=== PATIENT | female | born 1965 | race African-American/Black ===

== ENCOUNTER 2016-09-05 23:21 | Emergency (ER) | payer MEDICARE, MEDICAID ==
[~2016-09-05] VITALS: Ht 157.5 cm; Wt 70.3 kg
[~2016-09-05 23:21] MED LIST: AZITHROMYCIN250 MG ORAL; IBUPROFEN600 MG ORAL; LEVAQUIN500 MG ORAL; PROMETHAZINE-C118 M1 ORAL
[2016-09-05] MEDS ORDERED: BENZTROPINE ME0.5 MG PO (23:31)
[2016-09-05] MEDS ORDERED: QUETIAPINE FUMA25 MG ORAL (23:31)
[2016-09-06] MEDS ORDERED: IBUPROFEN600 MG ORAL (00:14)
--- NOTE | 2016-09-06 00:15 | Emergency Room Report ---
History of Present Illness General Chief Complaint: Pain Source: Patient Present Illness HPI This is a 50-year-old female with no past medical history. She presents with chief complaint of body pain. Onset for last few days. No trauma. No fever or chills. Has not take anything for this. No cough congestion. No fever or chills. No other complaint. Allergies: Coded Allergies: PENICILLINS (Verified Allergy, Unknown, 09/05/16) Patient History Past Medical History: see triage record, old chart reviewed Past Surgical History: other Pertinent Family History: none Social History: Denies: smoking Now: No Immunizations: other Reviewed Nursing Documentation: PMH: Agreed, PSxH: Agreed Nursing Documentation-PMH Past Medical History: No History, Except For Hx Diabetes: Yes Review of Systems Eye: Denies: blurred vision, eye pain ENT: Denies: ear pain, nose congestion, throat swelling Respiratory: Denies: cough, shortness of breath Cardiovascular: Denies: chest pain, palpitations Gastrointestinal: Denies: abdominal pain, diarrhea, nausea, vomiting Musculoskeletal: Denies: back pain, joint pain Skin: Denies: rash Neurological: Denies: headache, numbness Endocrine: Denies: increased thirst, increased urine Hematologic/Lymphatic: Denies: easy bruising All Other Systems: negative except mentioned in HPI Physical Exam Vital Signs Date Time Temp Pulse Resp B/P Pulse Ox O2 Delivery O2 Flow Rate FiO2 09/05/16 23:27 98.1 98 16 170/98 99 Room Air vitals with hypertension Sp02 EP Interpretation: reviewed, normal General Appearance: well appearing, no apparent distress, alert Head: normocephalic, atraumatic Eyes: bilateral eye EOMI, bilateral eye PERRL ENT: hearing grossly normal, normal pharynx Neck: full range of motion, supple, no meningismus Respiratory: chest non-tender, lungs clear, normal breath sounds Cardiovascular #1: regular rate, rhythm, no murmur Gastrointestinal: normal bowel sounds, non tender, no mass, no organomegaly, no bruit, non-distended Musculoskeletal: back normal, gait/station normal, normal range of motion Psychiatric: mood/affect normal Skin: warm/dry Medical Decision Making Diagnostic Impression: Primary Impression: Myalgia Additional Impression: Hypertension ER Course Patient presents with generalized body pain. She is sleeping comfortably. I see no trauma. No evidence of other issue. We'll discharge him. Last Vital Signs Date Time Temp Pulse Resp B/P Pulse Ox O2 Delivery O2 Flow Rate FiO2 09/05/16 23:27 98.1 98 16 170/98 99 Room Air Status: improved Disposition: HOME, SELF-CARE Condition: Stable Scripts Ibuprofen* (MOTRIN*) 600 Mg Tablet 600 MG ORAL THREE TIMES A DAY, #30 TAB 0 Refills Prov: NITO COELLO M.D. 09/06/16 Referrals: NOT CHOSEN IPA/,REFERRING (PCP) Patient Instructions: PAIN, Uncertain Cause (Acute) Additional Instructions: Followup with your DrJeronimo in 7 days. Have your DrJeronimo recheck on her blood pressure. Return if symptom worsen. NITO COELLO M.D. Sep 06, 2016 00:15
[2016-09-06 00:32] VITALS: BP 170/98
== END 2016-09-06 00:33 | disposition home or self-care (01) ==
LOC: EMR 23:41
DX: M79.1 Myalgia (principal); I10 Essential (primary) hypertension; E11.9 Type 2 diabetes mellitus without complications
CPT/HCPCS: 99283

== ENCOUNTER 2018-07-09 13:46 | Inpatient (IN) | payer MEDICARE, MEDICAID ==
[~2018-07-09] VITALS: Ht 157.5 cm; Wt 63.2 kg
[~2018-07-09 13:46] MED LIST changes: +BENZTROPINE ME0.5 MG PO; +QUETIAPINE FUMA25 MG ORAL
--- NOTE | 2018-07-09 13:50 | NUR ---
ED Nurse Note:pt. was brought in from home by family member with symptoms of right sided stroke for past 4 days, pt. had stroke assesment done and she had CT head, pt. placed on shelter monitor, blood and urine sent to labs, speech is sloored, VSS
[2018-07-09 14:16] VITALS: BP 145/94
--- NOTE | 2018-07-09 14:17 | Diagnostic Imaging Report ---
Indication: Altered mental status post stroke Technique: Contiguous 5 mm thick transaxial imaging of the head obtained in a Siemens Sensation [address] scanner. Soft tissue and bone windows generated. Automatic Exposure Control was utilized. Total Dose length Product (DLP): 1354.[address] Dose Index Volume (CTDIvol): 70.38 mGy Comparison: 04/10/2006 Findings: Patchy areas of low-attenuation are demonstrated within periventricular subcortical white matter. There is a small cystic focus in the right thalamus consistent with an old lacunar infarct. There is no definite evidence of acute intracranial hemorrhage, mass effect or edema. Osseous structures appear normal. The ventricles and basal cisterns appear normal. Paranasal sinuses are clear. IMPRESSION: No definite evidence of acute intracranial hemorrhage, mass effect or edema. Patchy nonspecific low-attenuation involving white matter tracts. Findings may be due to chronic small vessel disease although there is a differential diagnosis which includes demyelinating disease. Correlate clinically. Tiny cystic focus in the right thalamus likely an old lacunar infarct. The CT scanner at [facility] is accredited by the [employer] and the scans are performed using dose optimization techniques as appropriate to a performed exam including Automatic Exposure control. Critical value communication. Findings were discussed via telephone with Dr. Grady via telephone 2:11, 07/09/2018.
[2018-07-09 14:24] LABS: EOSINOPHILS % (AUTO) 0.8 % (0.0-3.0); HEMATOCRIT 41.8 % (37.0-47.0); HEMOGLOBIN 14.7 G/DL (12.0-16.0); MEAN CORPUSCULAR VOLUME 95 FL (80-99); MONOCYTES % (AUTO) 5.7 % (1.0-10.0); NEUTROPHILS % (AUTO) 65.5 % (45.0-75.0); PLATELET COUNT 236 K/UL (150-450); RED BLOOD COUNT 4.42 M/UL (4.20-5.40); RED CELL DISTRIBUTION WIDTH 11.6 % (11.6-14.8); WHITE BLOOD COUNT 7.3 K/UL (4.8-10.8)
[2018-07-09 14:34] LABS: ANION GAP 12 mmol/L (5-15); BLOOD UREA NITROGEN 16 mg/dL (7-18); CALCIUM 9.7 MG/DL (8.5-10.1); CARBON DIOXIDE 26 MMOL/L (21-32); CHLORIDE 106 MMOL/L (98-107); CREATININE 0.9 MG/DL (0.55-1.30); POTASSIUM 4.1 MMOL/L (3.5-5.1); SODIUM 143 MMOL/L (136-145)
--- NOTE | 2018-07-09 14:35 | Emergency Room Report ---
History of Present Illness General Chief Complaint: Stroke Symptoms Source: Patient Present Illness HPI This is a 52-year-old female who is a poor historian, who complains of weakness on the right arm and right leg with slurred speech. She states started about 4- 5 days ago. She states that about 2 days ago she went to [facility] but she apparently left prior to being evaluated. Denies any exacerbating or relieving factor. She does not recall the actual time of onset. She states that she had a falling episode last night due to unstable gait. She denies any other associated symptoms. Allergies: Coded Allergies: PENICILLINS (Verified Allergy, Unknown, 09/05/16) Patient History Past Medical History: none Past Surgical History: none Pertinent Family History: none Nursing Documentation-[facility] Past Medical History: No History, Except For Hx Hypertension: Yes Hx Diabetes: Yes Review of Systems All Other Systems: negative except mentioned in HPI Physical Exam Vital Signs Date Time Temp Pulse Resp B/P (MAP) Pulse Ox O2 Delivery O2 Flow Rate FiO2 07/09/18 13:51 98.8 99 20 145/94 (111) 98 Room Air General Appearance: well appearing, no apparent distress Head: normocephalic, atraumatic ENT: hearing grossly normal, normal voice Neck: full range of motion, supple Respiratory: normal inspection, chest non-tender, lungs clear, normal breath sounds, no rhonchi Cardiovascular #1: normal inspection, regular rate, rhythm Musculoskeletal: normal inspection, back normal Neurologic: other - slurred speech, no facial droop, +pronator drift on RUE, 4/ 5 MS on RLE, 4/5 MS on RUE Medical Decision Making Diagnostic Impression: Primary Impression: CVA (cerebral vascular accident) ER Course This is a potentially very serious patient requiring multiple bedside evaluations. The patient has had symptoms for 4 days and therefore, TPA is not indicated for this patient. In the risk outweighs the benefit. CT was reviewed. EKG and blood work was reviewed as well. The patient's repeat neurological examination is unchanged. The patient will be admitted to the telemetry unit. Discussed this with the panel physician who had accepted for admission. I also considered intracranial hemorrhage. Also considered intracranial tumor. Laboratory Tests Test 07/09/18 14:12 White Blood Count 7.3 K/UL (4.8-10.8) Red Blood Count 4.42 M/UL (4.20-5.40) Hemoglobin 14.7 G/DL (12.0-16.0) Hematocrit 41.8 % (37.0-47.0) Mean Corpuscular Volume 95 FL (80-99) Mean Corpuscular Hemoglobin 33.3 PG (27.0-31.0) H Mean Corpuscular Hemoglobin Concent 35.2 G/DL (32.0-36.0) Red Cell Distribution Width 11.6 % (11.6-14.8) Platelet Count 236 K/UL (150-450) Mean Platelet Volume 7.3 FL (6.5-10.1) Neutrophils (%) (Auto) 65.5 % (45.0-75.0) Lymphocytes (%) (Auto) 27.0 % (20.0-45.0) Monocytes (%) (Auto) 5.7 % (1.0-10.0) Eosinophils (%) (Auto) 0.8 % (0.0-3.0) Basophils (%) (Auto) 1.0 % (0.0-2.0) Prothrombin Time 10.3 SEC (9.30-11.50) Prothrombin Time INR 1.0 (0.9-1.1) PTT 23 SEC (23-33) Urine Color Pale yellow Urine Appearance Clear Urine pH 7 (4.5-8.0) Urine Specific [place] 1.005 (1.005-1.035) Urine Protein 2+ (NEGATIVE) H Urine Glucose (UA) Negative (NEGATIVE) Urine Ketones Negative (NEGATIVE) Urine Blood 2+ (NEGATIVE) H Urine Nitrite Negative (NEGATIVE) Urine Bilirubin Negative (NEGATIVE) Urine Urobilinogen Normal MG/DL (0.0-1.0) Urine Leukocyte Esterase 3+ (NEGATIVE) H Urine RBC 5-10 /HPF (0 - 2) H Urine WBC 20-30 /HPF (0 - 2) H Urine Squamous Epithelial Cells Few /LPF (NONE/OCC) Urine Bacteria Few /HPF (NONE) Sodium Level 143 MMOL/L (136-145) Potassium Level 4.1 MMOL/L (3.5-5.1) Chloride Level 106 MMOL/L (98-107) Carbon Dioxide Level 26 MMOL/L (21-32) Anion Gap 12 mmol/L (5-15) Blood Urea Nitrogen 16 mg/dL (7-18) Creatinine 0.9 MG/DL (0.55-1.30) Estimate Glomerular Filtration Rate > 60 mL/min (>60) Glucose Level 133 MG/DL (74-106) H Calcium Level 9.7 MG/DL (8.5-10.1) Total Bilirubin 0.5 MG/DL (0.2-1.0) Aspartate Amino Transferase (AST) 26 U/L (15-37) Alanine Aminotransferase (ALT) 34 U/L (12-78) Alkaline Phosphatase 73 U/L (46-116) Troponin I 0.001 ng/mL (0.000-0.056) Total Protein 7.4 G/DL (6.4-8.2) Albumin 3.9 G/DL (3.4-5.0) Globulin 3.5 g/dL Albumin/Globulin Ratio 1.1 (1.0-2.7) Triglycerides Level 42 MG/DL (30-150) Cholesterol Level 213 MG/DL (< 200) H LDL Cholesterol 88 mg/dL (<100) HDL Cholesterol 110 MG/DL (40-60) H Cholesterol/HDL Ratio 1.9 (3.3-4.4) L Urine Opiates Screen Negative (NEGATIVE) Urine Barbiturates Screen Negative (NEGATIVE) Phencyclidine (PCP) Screen Negative (NEGATIVE) Urine Amphetamines Screen Negative (NEGATIVE) Urine Benzodiazepines Screen Negative (NEGATIVE) Urine Cocaine Screen Positive (NEGATIVE) H Urine Marijuana (THC) Screen Negative (NEGATIVE) EKG Diagnostic Results EKG Time: 14:51 Rate: normal Rhythm: NSR ST Segments: no acute changes ASA given to the pt in ED: Yes Last Vital Signs Date Time Temp Pulse Resp B/P (MAP) Pulse Ox O2 Delivery O2 Flow Rate FiO2 07/09/18 14:16 98.8 101 24 145/94 98 Room Air Disposition: ADMITTED INPATIENT OTILIO TERRY July 09, 2018 14:35
[2018-07-09 14:39] LABS: ALANINE AMINOTRANSFERASE 34 U/L (12-78); ALBUMIN 3.9 G/DL (3.4-5.0); ALBUMIN/GLOBULIN RATIO 1.1 (1.0-2.7); ALKALINE PHOSPHATASE 73 U/L (46-116); ASPARTATE AMINO TRANSFERASE 26 U/L (15-37); BILIRUBIN,TOTAL 0.5 MG/DL (0.2-1.0); CHOLESTEROL 213 MG/DL (< 200); HDL CHOLESTEROL 110 MG/DL (40-60); TRIGLYCERIDES 42 MG/DL (30-150)
[2018-07-09 14:52] LABS: APPEARANCE,URINE CLEAR; BILIRUBIN, URINE NEGATIVE (NEGATIVE); COLOR,URINE PALE YELLOW; GLUCOSE, URINE (UA) NEGATIVE (NEGATIVE); KETONES,URINE NEGATIVE (NEGATIVE); LEUKOCYTE ESTERASE ,URINE 3+ (NEGATIVE); NITRITE,URINE NEGATIVE (NEGATIVE); PH,URINE 7 (4.5-8.0); PROTEIN,URINE 2+ (NEGATIVE); UROBILINOGEN,URINE NORMAL MG/DL (0.0-1.0)
--- NOTE | 2018-07-09 15:21 | NUR ---
ED Nurse Note:continue to monitor VS, pt. is sleeping no signs of distress noted
[2018-07-09 15:23] VITALS: BP 105/67
[2018-07-09] MEDS ORDERED: Aspirin Baby 81mg ORAL ONE (15:30)
[2018-07-09 16:59] VITALS: BP 123/69
--- NOTE | 2018-07-09 17:17 | NUR ---
ED Nurse Note:called report to tele, given to RN, pt. taken up stairs
[2018-07-09] MEDS ORDERED: SEROQUEL400 MG ORAL (18:56)
[2018-07-09] MEDS ORDERED: BENADRYL25 M3 PO (18:58)
[2018-07-09] MEDS ORDERED: TENORMIN100 MG ORAL (18:59)
--- NOTE | 2018-07-09 19:30 | NUR ---
NURSE NOTES: Received patient from Rocio BAPTISTE. Patient in bed, awake, alert and oriented x 4. Pupils equal brisk and reactive to light. Slurred speech. Weakness on right upper extremity, patient states it feels better. Lower extremities equal 5/5. Instructed patient to stay in bed d/t current condition. Bed in low position, bed alarm on, side rails up x2, call light within reach.
[2018-07-09 20:00] VITALS: BP 125/66
--- NOTE | 2018-07-09 20:11 | NUR ---
NURSE NOTES: Received pt from ER pt is stable, put pt on house coordinator. oriented pt to room and call light.
--- NOTE | 2018-07-09 20:13 | NUR ---
HAND-OFF: Report given to Natasha Davila RN.
[2018-07-09] MEDS: Heparin 5000 units/ml inj SUBQ SCH (20:47)
[2018-07-09] MEDS: QUEtiapine 200mg tab ORAL SCH (20:52)
[2018-07-10] VITALS: BP 127/68
[2018-07-10 04:00] VITALS: BP 125/69
--- NOTE | 2018-07-10 07:29 | NUR ---
NURSE NOTES: Received report from EMILE Minaya. Patient resting in bed, sleeping. Respiration even and non labored on room air. No SOB noted. IV patent and intact. Side rails up x2. Safety precaution observed. Bed in lowest position, alarm on and break engaged. Bed side table and bed alarm within reach. Will continue plan of care.
[2018-07-10 08:00] VITALS: BP 98/63
--- NOTE | 2018-07-10 08:27 | NUR ---
NURSE NOTES: Patient's daughter called and reported that her mother has metal implants on her face ( cheek bone), Verified with patient and she stated " there is a metal plate on the right side of her face". Dr. Karolina gresham.
[2018-07-10 08:28] LABS: ALANINE AMINOTRANSFERASE 29 U/L (12-78); ALBUMIN 3.6 G/DL (3.4-5.0); ALBUMIN/GLOBULIN RATIO 1.3 (1.0-2.7); ALKALINE PHOSPHATASE 64 U/L (46-116); ANION GAP 10 mmol/L (5-15); ASPARTATE AMINO TRANSFERASE 23 U/L (15-37); BILIRUBIN,TOTAL 0.7 MG/DL (0.2-1.0); BLOOD UREA NITROGEN 18 mg/dL (7-18); CALCIUM 9.3 MG/DL (8.5-10.1); CARBON DIOXIDE 26 MMOL/L (21-32); CHLORIDE 106 MMOL/L (98-107); CHOLESTEROL 203 MG/DL (< 200); HDL CHOLESTEROL 98 MG/DL (40-60); POTASSIUM 3.8 MMOL/L (3.5-5.1); SODIUM 142 MMOL/L (136-145); TRIGLYCERIDES 88 MG/DL (30-150)
[2018-07-10] MEDS: Benztropine 1mg tab ORAL SCH (09:14)
[2018-07-10] MEDS: Heparin 5000 units/ml inj SUBQ SCH ×2 (09:16→20:01)
--- NOTE | 2018-07-10 09:19 | NUR ---
ST NOTE: BEDSIDE SWALLOW EVAL RECEIVED BEDSIDE SWALLOW EVAL ORDER CHART REVIEWED PRIOR THE EVALUATION PT IS A 52-YEAR-OLD FEMALE WHO WAS ADMITTED FOR CVA. PER PT, SHE HAD THE SYMPTOMS(R-SIDED WEAKNESS AND SLURRED SPEECH 4 DAYS AGO). DYSPHAGIA RISK FACTORS: HTN, DM. PER CT HEAD:R THALAMUS CONSISTENT WITH AN OLD LACUNAR INFARCT). MRI, MRA ARE PENDING. PLOF: PT LIVES AT HOME BY SELF. CURRENT STATUS: PT SEEN AT BEDSIDE IN AM. ALERT, COOPERATIVE, FOLLOWS DIRECTIONS, VERBAL, BUT DYSARTHRIC. R-SIDED UPPER EXTREMITY IS WEAK; AND R-SIDED NEGLECTED. IDENTIFIED OBJECTS 3/3. GIVEN PO TRIALS: THIN(TSP), NECTAR THICK(TSP) AND PUREE(TSP) INITIAL IMPRESSION: R-SIDED FACIAL DROOP, TONGUE IS MILDLY DEVIATED TO R-SIDED. PT EDENTULOUS. MILDLY INCREASED ORAL TRANSIT TIME(3 TO 4 SECONDS), MILDLY REDCUED LARYNGEAL ELEVATION, NO OVERT S/S OF ASPIRATION. HOWEVER, PT HAS HIGH RISK FOR SILENT ASPIRATION. RECOMMENDATIONS: 1. CONSERVATIVELY, MODIFIED BARIUM SWALLOW PRIOR ORAL DIET FOR QUALITY OF LIFE, CONTINUE ORAL DIET. CHANGED DIET TO MOIST PUREE WITH NECTAR THICK LIQUIDS. 2. STRICT ASPIRATION PRECAUTIONS WITH DIRECT SUPERVISION. 3. SPEECH/LANGUAGE/COGNITION EVFATOUMATA D/W RN, KENDRA, AND SPOKE TO DR. RUSLAN VÁSQUEZ. PER ALFONSO VÁSQUEZ TO DO MODIFIED BARIUM SWALLOW STUDY. WILL FOLLOW.
--- NOTE | 2018-07-10 09:21 | NUR ---
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
[2018-07-10] MEDS ORDERED: Gadavist 7.5mMol/7.5ml vial IV PRN (09:30)
--- NOTE | 2018-07-10 11:21 | NUR ---
ST NOTE: MODIFIED BARIUM SWALLOW STUDY(MBSS) COMPLETED MODIFIED BARIUM SWALLOW STUDY PT ALERT, COOPERATIVE, ABLE TO FOLLOW DIRECTIONS, SLIGHTLY IMPULSIVE BEHAVIOR WAS NOTED. PT EDENTULOUS. GIVEN PO TRIALS: THIN(TSP X 2/ CUP-ONE SIP/STRAW-SEQUENTIAL), NECTAR THICK(TSP/MED CUP/ STRAW-ONE SIP),HONEY THICK(TSP), PUDDING(TSP), NECTAR THICK(TSP) AND H2O(TSPX2) IMPRESSION: PT PRESENTS WITH MODERATE OROPHARYNGEAL DYSPHAGIA. ORAL PHASE: INCREASED ORAL TRANSIT TIME(3 TO 4 SECONDS), LONGER WITH PUDDING(5 SECONDS) AND MILD TO MODERATE ORAL RESIDUE DUE TO SENSORIMOTOR DEFICITS(REDUCED SLOW TONGUE MOTION). PHARYNGEAL PHASE: THIN LIQUID: SILENT DEEP TRACE LARYNGEAL PENETRATION(LP) ON THE FIRST WARM UP TRIAL, CONTACTED VOCAL FOLDS, NOT EJECTED, AND BOLUS SLOWLY ENTERED THE AIRWAY(SILENT ASPIRATION), NOT EJECTED WITH NO EFFORT(COUGHING) DUE TO DELAYED SWALLOW(BOLUS HEADED IN PYRIFORMS), REDUCED HYO-LARYNGEAL ELEVATION/EXCURSION, REDUCED LARYNGEAL VESTIBULE CLOSURE. WITH CHIN TUCK, NO PENETRATION OR ASPIRATION ON SECOND TSP LEVEL AND MED CUP, HOWEVER, TRACE LP, EJECTED, WAS NOTED. AUDIBLE(COUGHING)ASPIRATION WITH H2O(TSP) WITH CHIN DOWN AT THE END OF MBSS NECTAR THICK: TRACE LP WITH STRAW, EJECTED WITH STRAW WITH THE ABOVE DEFICITS. TSP WITH CHIN DOWN AND MED CUP WITH HEAD TURN TO RIGHT DID NOT SEEN PENETRATION WITH ASPIRATION. HONEY THICK AND PUDDING: NO PENETRATION OR ASPIRATION WAS NOTED. TRACE TO COLLECTION(MILD) TONGUE BASE AND VALLECULAR RESIDUE AND PYRIFORM SINUSES DUE TO REDUCED TONGUE BASE RETRACTION AND REDUCED LARYNGEAL ELEVATION. PT BENEFITS FROM CHIN TUCK, EFFORTFUL SWALLOW, SWALLOW X 2 TO 3 TIMES; AND HEAD TURN TO R-SIDED. PT HAS RISK FOR SILENT ASPIRATION IF PRECAUTIONS ARE NOT STRICTLY APPLIED. RECOMMENDATIONS: 1. FOR QUALITY OF LIFE, CONTINUE ORAL DIET(CARDIAC MOIST PUREE WITH NECTAR THICK LIQUIDS). 2. STRICT ASPIRATION PRECAUTIONS WITH SUPERVISION 3. SWALLOW TX D/W PT AND THE STAFF; AND INFORMED DR. RUSLAN VÁSQUEZ RE:RESULTS AND RECOMMENDATIONS. POSTED ASPIRATION PRECAUTIONS SIGN
[2018-07-10 12:00] VITALS: BP 102/79
--- NOTE | 2018-07-10 12:17 | NUR ---
P.T NOTE: P.T EVALUATION COMPLETED AND TREATMENT INITIATED . PLEASE REFER TO P.T EVALUATION CURRENT FUNCTIONAL STATUS. PATIENT IS ALERT, O X 4 AND COOPERATIVE. PATIENT HAD NO C/O PAIN NOR DISCOMFORT AND AGREEABLE TO PARTICIPATE IN P.T EVAL/TX. PATIENT PRESENTED MILD R SIDE NEGLECT, R VISUAL IMPAIRMENT, SLURRED SPEECH AND R HEMIPLEGIA LIMITING HER FUNCTIONAL MOBILITY AND SAFETY. PATIENT DEMONSTRATED POOR SAFETY AWARENESS EVIDENCED BY IMPULSIVE BEHAVIOR AND DECREASED FOCUS ON SAFETY INSTRUCTION. PATIENT REQUIRED CONSTANT VERBAL CUES FOR REDIRECTION AND MANUAL CUES FOR HAND FOOT PLACEMENT AND SEQUENCING OF MOBILITY TASKS. MOD A X 1 FOR BED MOBILITY AND TRANSFERS. ABLE TO AMBULATE USING SIDE RAIL WITH MOD A X 1. SKILLED P.T SERVICE IS WARRANTED TO IMPROVE FUNCTIONAL MOBILITY INDEPENDENCE AND SAFETY. RECOMMEND ARU VS AT DISCHARGE. THANK YOU FOR THIS REFERRAL.
[2018-07-10] MEDS ORDERED: LORazepam Inj 2mg/ml 1ml IV SCH (12:45)
--- NOTE | 2018-07-10 14:03 | Diagnostic Imaging Report ---
APPROVED REPORT CPT Code: 29808 Vascular Symptoms CVA/TIA: Doppler Spectral Velocity Analysis RightLeft RIGHT SIDE: CCA - Imaging reveals no significant plaque within the extracranial carotid arteries. The Doppler spectral flow analysis is within normal limits throughout the extracranial carotid arteries. LEFT SIDE: CCA/ECA - Imaging reveals no significant plaque in the common carotid and external carotid arteries. ICA - Imaging reveals irregular plaque in the internal carotid artery. The Doppler signal indicates the degree of stenosis is mild (30%) in the internal carotid artery. SUBCLAVIANS/VERTEBRALS - Imaging reveals both subclavians and vertebral arteries to be patent, without evidence of stenosis or steal.
--- NOTE | 2018-07-10 14:52 | NUR ---
MRI BRAIN AND MRA BRAIN COMPLETED. PT REFUSED TO CONTINUE ON TO DO MRA NECK, WOULD/COULD NOT STAY STILL. EMILE MARES HAS BEEN INFORMED. B 14:52
--- NOTE | 2018-07-10 15:07 | Cardiology Report ---
APPROVED REPORT EXAM: Two-dimensional and M-mode echocardiogram with Doppler and color Doppler. INDICATION CVA/TIA M-Mode DIMENSIONS IVSd1.1 (0.7-1.1cm)Left Atrium (MM)3.4 (1.6-4.0cm) LVDd4.0 (3.5-5.6cm)Aortic Root3.0 (2.0-3.7cm) PWd1.4 (0.7-1.1cm)Aortic Cusp Exc.2.0 (1.5-2.0cm) LVDs2.7 (2.5-4.0cm) PWs1.4 cm Normal left ventricular chamber size, systolic function and wall motion. Left ventricular ejection fraction estimated to be 60-65 %. Mild left ventricular hypertrophy. Anterior Echo-free space, may be due to pericardial fat or effusion. Left atrial size at upper limits of normal. Right cardiac chamber sizes are within normal limits. Focal aortic valve sclerosis with adequate cusp excursion. Thickened mitral valve leaflets with normal excursion. Mitral annulus and aortic root calcification. Pulmonic valve not well visualized. Normal tricuspid valve structure. IVC at normal size with physiologic collapse. A color flow and spectral Doppler study was performed and revealed: Mild aortic regurgitation. Mild mitral regurgitation. Mitral diastolic velocities suggest reduced left ventricular relaxation c/w mild LV diastolic dysfunction (Grade I). Mild tricuspid regurgitation. Tricuspid systolic velocities suggests peak right ventricular systolic pressure of 25 mmHg.
--- NOTE | 2018-07-10 15:14 | Diagnostic Imaging Report ---
Indication: 52-year-old female with right arm and leg numbness/weakness slurred speech Technique: The head was imaged in a 1.5 Dee magnet. Sequences obtained include sagittal and axial T1 FLAIR, axial T2 fast spin echo with fat saturation, axial T2 FLAIR, diffusion and ADC map. MRA of the brain: 3-D [id number] Comparison: None 1.8 x 0.8 cm focus of diffusion restriction demonstrated just lateral to the left thalamus in the area of the posterior limb of internal capsule. Findings consistent with acute CVA. A small degree of associated T2 hyperintense edema demonstrated. There is no mass effect. There is no evidence of hemorrhage. There is motion artifact present which limits evaluation to some extent. Patchy areas of T2 hyperintense signal demonstrated within kumar radiata and centrum semiovale. Mild prominence of the sulci ventricles and basal cisterns noted consistent with atrophy. There is no evidence of hydrocephalus. There is fluid layering within the left maxillary sinus. The corpus callosum and sella appear unremarkable. Osseous bone marrow signal is unremarkable. MRA was performed but is very limited due to motion. Difficult to exclude some degree of stenosis but all of the major vessels are seen. There is no obvious aneurysm and no obvious vascular malformation. IMPRESSION: 1.8 x 0.8 cm focus of diffusion restriction involving the left posterior limb of the internal capsule. Findings most likely on the basis of acute nonhemorrhagic CVA. Minimal associated edema. No mass effect. Extensive patchy T2 hyperintense signal involving white matter tracts, nonspecific. Although this is common finding in older age populations due to chronic small vessel ischemia, this finding at this age are more nonspecific. Should include consider the possibilities such as demyelinating disease. Mild generalized atrophy of the brain Grossly negative, limited MRA of the brain. No major cerebral arterial occlusion. Motion related degradation of image quality
[2018-07-10 16:00] VITALS: BP 105/70
--- NOTE | 2018-07-10 17:30 | History and Physical Report ---
DATE OF ADMISSION: 07/09/2018 CHIEF COMPLAINT: Right-sided weakness. HISTORY OF PRESENT ILLNESS: The patient is a 52-year-old female. She has history of hypertension and diabetes, who presented from home with complaints of five days of right-sided weakness. On evaluation in the emergency room, the patient was noted to have right-sided hemiparesis with right facial droop. She does have a prior history of facial surgery with a plate. The patient denies any headaches. No chest pain. No shortness of breath. She denies any palpitations. PAST MEDICAL HISTORY: As above. PAST SURGICAL HISTORY: As above. CURRENT MEDICATIONS: Reconciled and reviewed. ALLERGIES: Include penicillin. FAMILY HISTORY: Noncontributory. SOCIAL HISTORY: The patient is a smoker. No alcohol. No drugs. REVIEW OF SYSTEMS: GENERAL: No fevers or chills. HEENT: No headaches or visual changes. CARDIOPULMONARY: No chest pain or shortness of breath. GASTROINTESTINAL: No nausea or vomiting. GENITOURINARY: No urgency or frequency. MUSCULOSKELETAL: No joint pain or swelling. NEUROLOGIC: No evidence of seizures. PHYSICAL EXAMINATION: VITAL SIGNS: Temperature 98 degrees, pulse 81, respirations 20, and blood pressure 125/69. GENERAL: The patient is well developed, in no apparent distress. HEART: Regular rate and rhythm. LUNGS: Clear. ABDOMEN: Soft. EXTREMITIES: No clubbing, cyanosis, or edema. NEUROLOGIC: The patient has right facial droop. She has a right-sided hemiparesis. LABORATORY AND DIAGNOSTIC DATA: Sodium 142, potassium 4, BUN 16, creatinine was 0.9. Troponin is 0.001. The LDL was 88. UA showed [address] scan of the head showed chronic ischemic changes, but no acute stroke. ASSESSMENT: This is a very pleasant female admitted with complaints of right-sided weakness for five days. Symptoms are consistent with a stroke. She has history of hypertension and diabetes. She may have UTI. PLAN: Neurology consultation. Monitor on telemetry. Check an echo, carotid duplex, MRI of the brain, MRA of the head and neck. The plan of care was discussed with the patient. We will also obtain a video swallow and PT/OT. Sagar Turcios M.D. DR: MARILEE JOB#: [id number] CC:
--- NOTE | 2018-07-10 19:20 | NUR ---
NURSE NOTES: Received report from Lincoln RN, pt. in bed awake- A/O x's3- able to make needs known- no signs or symptoms of acute cardiac or respiratory distress noted, bed in lowest position and jahaira light within easy reach, bed alarm on, side rails up x's 3 and safety brakes engaged, bed voss at bed side and within easy reach- pt. aware to ask for assist when using bed voss, pt. appears to be sating well on room air at 99%- no distress noted, LFA 20G IV intact and patent, safety measures continued, will continue with plan of care.
--- NOTE | 2018-07-10 19:25 | NUR ---
HAND-OFF: Report given to EMILE Gruber.
[2018-07-10 20:00] VITALS: BP_SYST 105; BP_SYST 113; BP_DIAS 63; BP_DIAS 71
[2018-07-10] MEDS: QUEtiapine 200mg tab ORAL SCH (20:00)
[2018-07-11] VITALS: BP 139/68
[2018-07-11 04:00] VITALS: BP 100/70
--- NOTE | 2018-07-11 07:11 | NUR ---
HAND-OFF: Report given to EMILE Stark- pt. remains stable and no signs of distress noted.
[2018-07-11 08:00] VITALS: BP 101/67
[2018-07-11] MEDS: Benztropine 1mg tab ORAL SCH (08:43)
[2018-07-11] MEDS: Heparin 5000 units/ml inj SUBQ SCH ×2 (08:45→21:15)
[2018-07-11 12:00] VITALS: BP 105/71
--- NOTE | 2018-07-11 12:03 | General Progress Note ---
Assessment/Plan Problem List: (1) UTI (lower urinary tract infection) ICD Codes: N39.0 - Urinary tract infection, site not specified SNOMED: 6168390 (2) CVA (cerebral vascular accident) ICD Codes: I63.9 - Cerebral infarction, unspecified SNOMED: 685603458 Status: stable Assessment/Plan: antiplt rx abx follow up urine culture pt/ot/st Subjective ROS Limited/Unobtainable: No Constitutional: Reports: weakness HEENT: Reports: no symptoms Cardiovascular: Reports: no symptoms Respiratory: Reports: no symptoms Gastrointestinal/Abdominal: Reports: no symptoms Genitourinary: Reports: no symptoms Neurologic/Psychiatric: Reports: pre-existing deficit Endocrine: Reports: no symptoms Hematologic/Lymphatic: Reports: no symptoms Allergies: Coded Allergies: PENICILLINS (Verified Allergy, Unknown, 09/05/16) All Systems: reviewed and negative except above Subjective no new complaints. MRI with internal capsule acute cva. echo neg. carotids neg. abnormal ua Objective Last 24 Hour Vital Signs Date Time Temp Pulse Resp B/P (MAP) Pulse Ox O2 Delivery O2 Flow Rate FiO2 07/11/18 09:00 Room Air 07/11/18 08:34 80 101/67 07/11/18 08:00 97.7 80 18 101/67 (78) 100 07/11/18 08:00 70 07/11/18 04:00 98.6 74 18 100/70 (80) 100 07/11/18 04:00 68 07/11/18 00:00 74 07/11/18 00:00 98.2 79 18 139/68 (91) 100 07/10/18 21:00 Room Air 07/10/18 20:00 77 07/10/18 20:00 98.8 78 18 105/71 (82) 98 07/10/18 16:13 72 07/10/18 16:00 98.4 79 19 105/70 (82) 100 Intake and Output 07/10/18 07/11/18 18:59 06:59 Intake Total 800 ml Balance 800 ml Intake Oral 800 ml # Voids 5 3 # Bowel Movements 1 Height (Feet): 5 Height (Inches): 2.00 Weight (Pounds): 143 General Appearance: WD/WN, alert Neck: supple Cardiovascular: regular rhythm Respiratory/Chest: chest wall non-tender, lungs clear, normal breath sounds Abdomen: normal bowel sounds, non tender, soft, no organomegaly Edema: no edema noted Arm (L), no edema noted Arm (R), no edema noted Leg (L), no edema noted Leg (R), no edema noted Pedal (L), no edema noted Pedal (R), no edema noted Generalized Neurologic: alert, oriented x 3, responsive, motor weakness Sagar Turcios MD July 11, 2018 12:03
[2018-07-11] MEDS: Levofloxacin 500mg tab ORAL SCH (12:25)
[2018-07-11 16:00] VITALS: BP 100/52
--- NOTE | 2018-07-11 19:40 | NUR ---
HAND-OFF: Report given to EMILE Farr.
--- NOTE | 2018-07-11 19:52 | NUR ---
NURSE NOTES: Received report from EMILE Stark. Patient is awake lying semi-peña's; resting comfortably. No signs of acute distress noted; complains of some pain. AOx3-4; able to make needs known. Patient exhibiting slurred speech. Ambulates to the bedside commode with assistance. Checked IV site; patent and flushed. No erythema, bleeding, or infiltration noted. Bedside commode easily accessible. Bed at lowest position, brakes on, siderails up x3. Call light within reach. Will continue to monitor.
[2018-07-11 20:00] VITALS: BP 118/84
[2018-07-11] MEDS: QUEtiapine 200mg tab ORAL SCH (21:15)
[2018-07-12] VITALS: BP_SYST 128; BP_SYST 132; BP_DIAS 72; BP_DIAS 81
--- NOTE | 2018-07-12 03:08 | NUR ---
NURSE NOTES: Patient is asleep lying semi-peña's; resting comfortably. No signs of acute distress or pain noted at this time.
[2018-07-12 04:00] VITALS: BP 128/81
--- NOTE | 2018-07-12 07:30 | NUR ---
NURSE NOTES: Received report from EMILE Farr. Pt is laying in bed with no distress noted. Bed is in lowest position, side rails up X2, and call light is within reach. Will continue to monitor.
--- NOTE | 2018-07-12 07:32 | NUR ---
HAND-OFF: Report given to EMILE Hopkins. Patient is awake lying high-peña's watching TV; resting comfortably. In stable condition.
[2018-07-12 08:00] VITALS: BP 95/58
[2018-07-12] MEDS: Levofloxacin 500mg tab ORAL SCH (08:28)
[2018-07-12] MEDS: Benztropine 1mg tab ORAL SCH (08:29)
[2018-07-12] MEDS: Heparin 5000 units/ml inj SUBQ SCH ×2 (08:30→20:48)
--- NOTE | 2018-07-12 11:46 | General Progress Note ---
Assessment/Plan Problem List: (1) UTI (lower urinary tract infection) ICD Codes: N39.0 - Urinary tract infection, site not specified SNOMED: 2485061 (2) CVA (cerebral vascular accident) ICD Codes: I63.9 - Cerebral infarction, unspecified SNOMED: 175545453 Status: stable Assessment/Plan: antiplt rx abx follow up urine culture pt/ot/st Subjective ROS Limited/Unobtainable: No Constitutional: Reports: malaise, weakness HEENT: Reports: no symptoms Cardiovascular: Reports: no symptoms Respiratory: Reports: no symptoms Gastrointestinal/Abdominal: Reports: no symptoms Genitourinary: Reports: no symptoms Neurologic/Psychiatric: Reports: pre-existing deficit Endocrine: Reports: no symptoms Hematologic/Lymphatic: Reports: no symptoms Allergies: Coded Allergies: PENICILLINS (Verified Allergy, Unknown, 09/05/16) All Systems: reviewed and negative except above Subjective no new complaints. MRI with internal capsule acute cva. echo neg. carotids neg. abnormal ua still weak on the right side. wants regular food Objective Last 24 Hour Vital Signs Date Time Temp Pulse Resp B/P (MAP) Pulse Ox O2 Delivery O2 Flow Rate FiO2 07/12/18 09:00 Room Air 07/12/18 08:00 86 07/12/18 08:00 97.9 72 22 95/58 (70) 100 07/12/18 04:00 97.6 86 20 128/81 (97) 99 07/12/18 04:00 76 07/12/18 00:00 79 07/12/18 00:00 98.6 92 20 132/72 (92) 96 07/11/18 21:00 Room Air 07/11/18 20:00 80 07/11/18 20:00 98.6 82 20 118/84 (95) 98 07/11/18 16:00 98.2 80 18 100/52 (68) 100 07/11/18 16:00 72 07/11/18 12:00 81 07/11/18 12:00 98.1 71 18 105/71 (82) 100 Intake and Output 07/11/18 07/12/18 18:59 06:59 Intake Total 760 ml 240 ml Output Total 750 ml Balance 10 ml 240 ml Intake Oral 760 ml 240 ml Output Urine Total 750 ml # Voids 2 4 Height (Feet): 5 Height (Inches): 2.00 Weight (Pounds): 143 Objective General Appearance: WD/WN, alert Neck: supple Cardiovascular: regular rhythm Respiratory/Chest: chest wall non-tender, lungs clear, normal breath sounds Abdomen: normal bowel sounds, non tender, soft, no organomegaly Edema: no edema noted Arm (L), no edema noted Arm (R), no edema noted Leg (L), no edema noted Leg (R), no edema noted Pedal (L), no edema noted Pedal (R), no edema noted Generalized Neurologic: alert, oriented x 3, responsive, motor weakness Sagar Turcios MD July 12, 2018 11:46
[2018-07-12 12:00] VITALS: BP 131/95
--- NOTE | 2018-07-12 13:22 | NUR ---
CASE MANAGEMENT: REVIEW 07/12/2018 SI:CEREBRAL INFARCTION. T 97.6 HR 83 RR 20 B/P 131/95 SATS 100% ON RA NO LABS TODAY IS:SEROQUEL PO QHS TENORMIN PO QD COGENTIN PO QD LEVAQUIN PO QD TELE STATUS PLAN OF CARE: abx follow up urine culture pt/ot/st
[2018-07-12 16:00] VITALS: BP 130/90
--- NOTE | 2018-07-12 19:31 | NUR ---
HAND-OFF: Report given to Christiano Nur. Plan of care endorsed
--- NOTE | 2018-07-12 19:31 | NUR ---
NURSE NOTES: Pt received from EMILE Hopkins alert and oriented x4 with no acute s/s of distress noted. Pt presents with slurred speech and evident R sided facial and extremity weakness. IV site asymptomatic and patent on L fa 20g, saline lock. BS Commode at bedside. Bed alarm on, bed in lowest position, call light and belongings within reach.
[2018-07-12 20:00] VITALS: BP 124/95
[2018-07-12] MEDS: QUEtiapine 200mg tab ORAL SCH (20:45)
[2018-07-13] VITALS: BP 128/94
--- NOTE | 2018-07-13 01:03 | NUR ---
NURSE NOTES: Pt currently resting in bed, asleep. IV site on L fa 20g, intact and patent, on saline lock. Bed in lowest position, bed alarm on. Call light and belongings within reach.
[2018-07-13 04:00] VITALS: BP 131/63
--- NOTE | 2018-07-13 07:15 | NUR ---
HAND-OFF: Report given to EMILE Mike.
--- NOTE | 2018-07-13 07:40 | NUR ---
NURSE NOTES: Pt received from JENNIFER, RN alert and oriented x4 with no acute s/s of distress noted. Pt presents with slurred speech and evident R sided facial and extremity weakness. IV site asymptomatic and patent on L fa 20g, saline lock. BS Commode at bedside. Bed alarm on, bed in lowest position, call light and belongings within reach.
[2018-07-13 08:00] VITALS: BP 108/68
[2018-07-13] MEDS: Benztropine 1mg tab ORAL SCH (08:55)
[2018-07-13] MEDS: Levofloxacin 500mg tab ORAL SCH (08:55)
[2018-07-13] MEDS: Heparin 5000 units/ml inj SUBQ SCH ×2 (08:56→20:33)
--- NOTE | 2018-07-13 09:05 | General Progress Note ---
Assessment/Plan Problem List: (1) UTI (lower urinary tract infection) ICD Codes: N39.0 - Urinary tract infection, site not specified SNOMED: 8639991 (2) CVA (cerebral vascular accident) ICD Codes: I63.9 - Cerebral infarction, unspecified SNOMED: 580741372 Status: stable Assessment/Plan: antiplt rx abx follow up urine culture pt/ot/st dc planning to snf Subjective ROS Limited/Unobtainable: No Constitutional: Reports: malaise, weakness HEENT: Reports: no symptoms Cardiovascular: Reports: no symptoms Respiratory: Reports: no symptoms Gastrointestinal/Abdominal: Reports: no symptoms Genitourinary: Reports: no symptoms Neurologic/Psychiatric: Reports: anxiety, pre-existing deficit Endocrine: Reports: no symptoms Hematologic/Lymphatic: Reports: no symptoms Allergies: Coded Allergies: PENICILLINS (Verified Allergy, Unknown, 09/05/16) All Systems: reviewed and negative except above Subjective no new complaints. MRI with internal capsule acute cva. echo neg. carotids neg. abnormal ua still weak on the right side. wants regular food Objective Last 24 Hour Vital Signs Date Time Temp Pulse Resp B/P (MAP) Pulse Ox O2 Delivery O2 Flow Rate FiO2 07/13/18 08:53 73 108/68 07/13/18 08:26 Room Air 07/13/18 08:00 98.3 73 20 108/68 (81) 98 07/13/18 04:00 62 07/13/18 04:00 98.2 68 16 131/63 (85) 100 07/13/18 00:00 98.8 69 18 128/94 (105) 99 07/13/18 00:00 75 07/12/18 21:00 Room Air 07/12/18 20:00 98.5 77 19 124/95 (105) 99 07/12/18 20:00 76 07/12/18 16:00 62 07/12/18 16:00 97.4 94 23 130/90 (103) 95 07/12/18 12:00 57 07/12/18 12:00 97.6 83 20 131/95 (107) 100 Intake and Output 07/12/18 07/13/18 19:00 07:00 Intake Total 480 ml Balance 480 ml Intake Oral 480 ml # Voids 1 4 Height (Feet): 5 Height (Inches): 2.00 Weight (Pounds): 143 Objective General Appearance: WD/WN, alert Neck: supple Cardiovascular: regular rhythm Respiratory/Chest: chest wall non-tender, lungs clear, normal breath sounds Abdomen: normal bowel sounds, non tender, soft, no organomegaly Edema: no edema noted Arm (L), no edema noted Arm (R), no edema noted Leg (L), no edema noted Leg (R), no edema noted Pedal (L), no edema noted Pedal (R), no edema noted Generalized Neurologic: alert, oriented x 3, responsive, motor weakness Sagar Turcios MD July 13, 2018 09:05
--- NOTE | 2018-07-13 10:47 | NUR ---
NURSE NOTES: @10:21 Patient had 8 seconds of PSVT and converted back to NSR in 70s. paged Dr. Turcios @10:45am Dr. Turcios is aware and to continue to monitor patient.
[2018-07-13 11:54] VITALS: BP 114/73
--- NOTE | 2018-07-13 14:59 | Cardiology Report ---
APPROVED REPORT EKG Measurement Heart [id number] Normal sinus rhythm with sinus arrhythmia Left atrial enlargement Septal infarct, age undetermined Abnormal ECG
[2018-07-13 16:00] VITALS: BP 110/75
--- NOTE | 2018-07-13 19:34 | NUR ---
HAND-OFF: Report given to EMILE Nur.
--- NOTE | 2018-07-13 19:41 | NUR ---
NURSE NOTES: Pt received from EMILE Mike alert and oriented x4 with no acute s/s of distress noted. Slurred and garbled speech noted upon rounds. IV site asymptomatic and patent, L fa 20g on saline lock. Bed alarm on, bed in lowest position. Call light and belongings within reach.
[2018-07-13 20:00] VITALS: BP 119/58
[2018-07-13] MEDS: QUEtiapine 200mg tab ORAL SCH (20:30)
[2018-07-14] VITALS: BP 112/60
--- NOTE | 2018-07-14 03:01 | NUR ---
NURSE NOTES: Pt currently resting in bed asleep with no acute s/s of distress noted. IV site asymptomatic and patent, L fa 20g saline lock. Bed alarm on, bed in lowest position, call light and belongings within reach.
--- NOTE | 2018-07-14 03:14 | NUR ---
NURSE NOTES: Pt currently resting in bed, asleep with no acute s/s of distress noted. IV site asymptomatic on L fa 20g. Bed alarm on. Bed in lowest position, call light and belongings within reach.
[2018-07-14 04:00] VITALS: BP 124/68
--- NOTE | 2018-07-14 06:15 | NUR ---
HAND-OFF: Report given to EMILE Clayton. No acute s/s of distress noted.
--- NOTE | 2018-07-14 06:16 | NUR ---
NURSE NOTES: Received report from EMILE Nur. Pt is asleep in bed. In acute distress. Bed in lowest position, call light within reach. Will continue to monitor.
--- NOTE | 2018-07-14 07:19 | NUR ---
HAND-OFF: Report given to EMILE Stark.
--- NOTE | 2018-07-14 07:20 | NUR ---
NURSE NOTES: Received report from EMILE Clayton. Patient resting in bed, sleeping. Respiration even and non labored on room air. No SOB noted. Side rails up x2. Safety precaution observed. Bed in lowest position, alarm on and break engaged. Bed side table and bed alarm within reach. Will continue plan of care.
[2018-07-14 08:00] VITALS: BP 100/72
--- NOTE | 2018-07-14 08:04 | General Progress Note ---
Assessment/Plan Problem List: (1) UTI (lower urinary tract infection) ICD Codes: N39.0 - Urinary tract infection, site not specified SNOMED: 0741574 (2) CVA (cerebral vascular accident) ICD Codes: I63.9 - Cerebral infarction, unspecified SNOMED: 952535949 Status: stable Assessment/Plan: antiplt rx abx follow up urine culture pt/ot/st dc planning to snf Subjective ROS Limited/Unobtainable: No Constitutional: Reports: malaise, weakness HEENT: Reports: no symptoms Cardiovascular: Reports: no symptoms Respiratory: Reports: no symptoms Gastrointestinal/Abdominal: Reports: no symptoms Genitourinary: Reports: no symptoms Neurologic/Psychiatric: Reports: pre-existing deficit, weakness Endocrine: Reports: no symptoms Hematologic/Lymphatic: Reports: no symptoms Allergies: Coded Allergies: PENICILLINS (Verified Allergy, Unknown, 09/05/16) All Systems: reviewed and negative except above Subjective no new complaints. tolerating regular food. no cp/sob Objective Last 24 Hour Vital Signs Date Time Temp Pulse Resp B/P (MAP) Pulse Ox O2 Delivery O2 Flow Rate FiO2 07/14/18 04:00 98.1 85 18 124/68 (86) 97 07/14/18 04:00 83 07/14/18 00:00 84 07/14/18 00:00 98.3 79 17 112/60 (77) 97 07/13/18 21:00 Room Air 07/13/18 20:00 70 07/13/18 20:00 98.1 86 18 119/58 (78) 97 07/13/18 16:00 97.6 79 20 110/75 (87) 97 07/13/18 15:45 71 07/13/18 14:53 98.2 07/13/18 11:54 98.2 70 20 114/73 (87) 98 07/13/18 11:54 72 07/13/18 10:21 76 07/13/18 08:53 73 108/68 07/13/18 08:26 Room Air Intake and Output 07/13/18 07/14/18 19:00 07:00 Intake Total 720 ml 480 ml Balance 720 ml 480 ml Intake Oral 720 ml 480 ml # Voids 3 4 # Bowel Movements 1 Height (Feet): 5 Height (Inches): 2.00 Weight (Pounds): 143 Objective General Appearance: WD/WN, alert Neck: supple Cardiovascular: regular rhythm Respiratory/Chest: chest wall non-tender, lungs clear, normal breath sounds Abdomen: normal bowel sounds, non tender, soft, no organomegaly Edema: no edema noted Arm (L), no edema noted Arm (R), no edema noted Leg (L), no edema noted Leg (R), no edema noted Pedal (L), no edema noted Pedal (R), no edema noted Generalized Neurologic: alert, oriented x 3, responsive, motor weakness Sagar Turcios MD July 14, 2018 08:04
--- NOTE | 2018-07-14 08:40 | NUR ---
Concerning MRA Neck... EMILE Luke is checking w/Dr. Turcios to see if exam is still needed. Pt did not stay still for prior exams, and a US Carotids was already obtained. festus 08:38
[2018-07-14] MEDS: Benztropine 1mg tab ORAL SCH (09:37)
[2018-07-14] MEDS: Levofloxacin 500mg tab ORAL SCH (09:38)
[2018-07-14] MEDS: Heparin 5000 units/ml inj SUBQ SCH ×2 (09:39→20:26)
--- NOTE | 2018-07-14 10:27 | NUR ---
DISCHARGE PLANNING PATIENT HAS BEEN REFERRED TO [facility] T: [phone] F: [phone]
[2018-07-14 12:00] VITALS: BP 108/76
--- NOTE | 2018-07-14 13:16 | NUR ---
RD ASSESSMENT & RECOMMENDATIONS SEE CARE ACTIVITY FOR COMPLETE ASSESSMENT DAILY ESTIMATED NEEDS: Needs based on cardiac/ 55kg abw 25-30 kcals/kg 7165-7275 total kcals 1-1.3 g protein/kg 55-71 g total protein 25-30 mL/kg 7295-0978 total fluid mLs NUTRITION DIAGNOSIS: * Swallowing difficulty R/T acute CVA as evidenced by s/p VSS w/ rec for pureed moist, NTL. * Altered nutrition related lab values R/T altered lipid metabolism, pre-diabetes as evidenced by A1Cof 5.9, mildly elev BGs (130 133), elev cholesterol (203) CURRENT DIET:CARDIAC/ pureed moist, NTL PO DIET RECOMMENDATIONS: CARDIAC, CCHO MED/ texture per ALIGNMENT MECHANIC ADDITIONAL RECOMMENDATIONS: * Calibrated bedscale wt for accurate CBW * F/up CBC, BMP as able * Monitor BGs, need for accucheck or hypoglycemics - A1C 5.9 * Consider lipid lowering agent
[2018-07-14 16:00] VITALS: BP 134/76
--- NOTE | 2018-07-14 19:28 | NUR ---
HAND-OFF: Report given to EMILE Gutierrez.
[2018-07-14 20:00] VITALS: BP 110/83
[2018-07-14] MEDS: QUEtiapine 200mg tab ORAL SCH (20:24)
[2018-07-15] VITALS: BP 107/58
--- NOTE | 2018-07-15 | NUR ---
NURSE NOTES: Received pt and report from EMILE Stark. Observed pt resting in bed with both eyes open and watching television. hall monitor is in placed, IV site intact, asymptomatic, and patent. Bed is in the lowest position, locked, and alarmed. Call light within reach. Bedside commode present. No signs/symptoms of acute distress noted at this time. Will continue plan of care. Addendum: 07/15/18 at 0041 by Sylvia Zarate Mai, RN WRONG TIME! RECEIVED PATIENT AT 1920.
[2018-07-15 04:00] VITALS: BP 110/67
--- NOTE | 2018-07-15 05:45 | Consultation ---
DATE OF CONSULTATION: 07/14/2018 CARDIOLOGY CONSULTATION CONSULTING PHYSICIAN: Franklin Beck M.D. REQUESTING PHYSICIAN: Sagar Turcios M.D. REASON FOR CONSULTATION: Cardiovascular management in the setting of acute cerebrovascular accident and cocaine abuse. HISTORY OF PRESENT ILLNESS: This is a 52-year-old female. She presented to the hospital several days ago with right-sided weakness, but subsequently noted to have an abnormal MRI of the brain consistent with an acute cerebrovascular insult. She was also noted to have a positive urine tox screen for cocaine. Blood pressure management has been undertaken as well as anti-platelet therapy. I have been asked to address further cardiovascular care. The patient had an echocardiogram during her hospital stay notable for normal ejection fraction with concentric hypertrophy and no significant valvular disease. She has been on a monitoring analyst. She did have some episodes of nonsustained atrial tachyarrhythmias. PAST MEDICAL HISTORY: Includes hypertension. MEDICATIONS: Reviewed. ALLERGIES: Penicillin. SOCIAL HISTORY: Positive for smoking and cocaine abuse. No history of alcohol abuse. REVIEW OF SYSTEMS: Otherwise, all systems negative. PHYSICAL EXAM: VITAL SIGNS: Blood pressure 108/76, pulse 78, respirations 18, and afebrile. LUNGS: Clear. CARDIAC: Regular. Normal S1, S2 with no murmur. ABDOMEN: Soft and nontender. EXTREMITIES: Without edema. There is mild right-sided weakness. IMPRESSION: 1. Acute cerebrovascular accident. 2. Hypertensive heart disease. 3. Cocaine abuse. 4. Paroxysmal supraventricular tachycardia. 5. Favorable lipid panel. PLAN: 1. Counseled regarding risk of further cocaine abuse. 2. Continue anti-platelet therapy. 3. Maintain beta-nelly. 4. Consider calcium channel nelly for suppression of vasospasm in this clinical setting. Franklin Beck M.D. DR: PAULINA JOB#: [id number] CC:
--- NOTE | 2018-07-15 07:42 | NUR ---
NURSE NOTES: Received report from EMILE Gutierrez. Patient is in stable condition. No acute distress/SOB noted. Patient denies any pain/discomfort at this time. Will continue plan of care.
[2018-07-15 08:00] VITALS: BP 95/59
--- NOTE | 2018-07-15 08:07 | NUR ---
HAND-OFF: Report given to EMILE Marte.
[2018-07-15] MEDS: Levofloxacin 500mg tab ORAL SCH (08:53)
[2018-07-15] MEDS: Benztropine 1mg tab ORAL SCH (08:53)
[2018-07-15] MEDS: Heparin 5000 units/ml inj SUBQ SCH (09:00)
--- NOTE | 2018-07-15 09:52 | NUR ---
Social Service Note Patient accepted at [facility], , nurse will receive room assignment once report is provided. Transportation arranged with [email or web address] picker time 1300. Messages left for dgt's Ivania Marks [phone] and Betina Marks [phone]. Primary nurse aware.
--- NOTE | 2018-07-15 10:21 | NUR ---
NURSE NOTES: Called [facility] for report. Charge nurse asked to call back after an hour. They haven't assigned patient yet. Will follow up.
--- NOTE | 2018-07-15 11:24 | NUR ---
NURSE NOTES: Discharge report given to EMILE Whiting/charge nurse @ [facility]. . Patient is going to Room 430B. Will continue plan of care.
[2018-07-15] MEDS ORDERED: ACETAMINOPHEN325 M1 ORAL (11:46)
[2018-07-15 12:00] VITALS: BP 96/63
--- NOTE | 2018-07-15 12:09 | NUR ---
NURSE NOTES: Discharge instruction given and patient verbalized understanding. No acute distress/SOB noted. Inventory check done. Awaiting for transportation. Will continue plan of care.
--- NOTE | 2018-07-15 13:12 | NUR ---
NURSE NOTES: Patient is in stable condition. No acute distress/SOB noted. Patient deneis any pain/discomfort. Patient left with 2 carbonizer tester via gurney by [facility]. All belongings given to EMT.
--- NOTE | 2018-07-16 02:00 | Discharge Summary ---
DATE OF ADMISSION: 07/09/2018 DATE OF DISCHARGE: 07/15/2018 ADMISSION DIAGNOSES: 1. CVA. 2. Hypertension. 3. History of psychosis. DISCHARGE DIAGNOSES: 1. CVA. 2. Hypertension. 3. History of psychosis. HOSPITAL COURSE: The patient is a pleasant female with a history of hypertension and psychosis. She was admitted with complaints of right-sided weakness. According to the patient, she had, had 5 days a week prior to her presentation. Her urine tox screen was positive for cocaine. She was admitted. She had a CAT scan of the head that was unremarkable. An MRI later did confirm a stroke. She was continued on antiplatelet therapy. Her carotid duplex showed only minimal plaquing in the carotids. Her echo showed no evidence of any LV thrombus or shunt. On discharge, she was stable. Family elected that she go to acute rehabilitation for therapy. DISCHARGE MEDICATIONS: Please see discharge medication list for discharge medications. DIET: Cardiac diet. ACTIVITIES: Ad-christiano. Sagar Turcios M.D. DR: ANU JOB#: [id number] CC:
--- NOTE | 2018-07-16 09:45 | Progress Note ---
DATE: 07/15/2018 CARDIOLOGY PROGRESS NOTE SUBJECTIVE: The patient without new distress. noted. OBJECTIVE: VITAL SIGNS: Blood pressure 96/63, pulse 79, and respirations 18. LUNGS: Clear. CARDIAC: Regular. ABDOMEN: Soft. EXTREMITIES: No edema. IMPRESSION: 1. Acute CVA. 2. Hypertensive heart disease. 3. Cocaine intoxication. PLAN: 1. Acute rehabilitation transfer. 2. Hold parameters for antihypertensives with low blood pressure range. 3. Maintain statin drug and anti-platelet therapy. 4. Risk of recurring use of cocaine discussed in detail including sudden cardiac . Franklin Beck M.D. DR: PAULINA JOB#: [id number] CC:
--- NOTE | 2018-07-16 14:18 | Diagnostic Imaging Report ---
Indications: Dysphagia Technique: Patient ingested multiple substances under the supervision of speech pathology. Video fluoroscopic recording performed. Total fluoroscopy time when 88.1 seconds. Total dose area product 0.41716 mGycm2 Total number of images-13 Comparison: none Findings: Initial swallowing of thin liquid barium resulted in silent aspiration. No penetration or aspiration seen with ingestion of thin liquid barium and the chin tuck position. No significant early or delayed pooling. With ingestion of nectar thick liquid barium, supraglottic laryngeal penetration of contrast is noted. This is improved with chin tuck position. No abnormality of ingestion of honey thick liquid barium. Early passive pooling is seen with ingestion of barium puree.. Impression: Positive for aspiration of thin liquid barium, penetration of nectar thick liquid barium Please refer to speech pathology report for more detailed analysis
== END 2018-07-15 13:14 | disposition short-term general hospital (02) | DRG 65 ==
LOC: EMR 14:20 → 2E 16:17 → EDBEDREQ 16:29 → 2E 18:49
DX: I63.9 Cerebral infarction, unspecified (principal); N39.0 Urinary tract infection, site not specified; I47.1 Supraventricular tachycardia; F14.10 Cocaine abuse, uncomplicated; F17.200 Nicotine dependence, unspecified, uncomplicated; I11.9 Hypertensive heart disease without heart failure; Z88.0 Allergy status to penicillin; E11.9 Type 2 diabetes mellitus without complications
CPT/HCPCS: 36415; 70450; 70544; 70551; 74230; 80053; 80061; 80307; 81001; 82962; 83036; 84443; 84484; 85025; 85610; 85730; 87086; 93005; 93306; 93880; 96372; 99285

== ENCOUNTER 2019-12-13 10:41 | Emergency (ER) | payer BC, MEDICAID ==
[~2019-12-13] VITALS: Ht 157.5 cm; Wt 65.8 kg
[~2019-12-13 10:41] MED LIST changes: +ACETAMINOPHEN325 M1 ORAL; +BENADRYL25 M3 PO; +SEROQUEL400 MG ORAL; +TENORMIN100 MG ORAL
--- NOTE | 2019-12-13 10:48 | NUR ---
ED Nurse Note: Pt ambulated to ed c/o pressure like bilateral arm pain. pt reports falling down 2 days ago but pain has been persistant for 1 week, skin dry and intact. pt appears to have swelling present on the left forearm.
[2019-12-13 10:49] VITALS: BP 155/99
[2019-12-13] MEDS ORDERED: HYDROcodone/Acetamin 5/325 tab ORAL ONE (11:00)
--- NOTE | 2019-12-13 11:00 | NUR ---
ED Nurse Note: Pt was able to ambulate to restroom, urine sample collected
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
[2019-12-13 11:11] LABS: APPEARANCE,URINE SLIGHTLY CLOUDY; BILIRUBIN, URINE NEGATIVE (NEGATIVE); COLOR,URINE PALE YELLOW; GLUCOSE, URINE (UA) 2+ (NEGATIVE); KETONES,URINE NEGATIVE (NEGATIVE); LEUKOCYTE ESTERASE ,URINE 3+ (NEGATIVE); NITRITE,URINE NEGATIVE (NEGATIVE); PH,URINE 6 (4.5-8.0); PROTEIN,URINE 2+ (NEGATIVE); UROBILINOGEN,URINE NORMAL MG/DL (0.0-1.0)
[2019-12-13] MEDS ORDERED: NORCO 5-325 TA1 EAC1 ORAL (11:37)
[2019-12-13] MEDS ORDERED: CEPHALEXIN500 MG ORAL (11:37)
--- NOTE | 2019-12-13 11:42 | NUR ---
ED Nurse Note: EREMT placing splint on pt.
[2019-12-13 11:43] VITALS: BP 147/89
--- NOTE | 2019-12-13 11:43 | NUR ---
ER DISCHARGE NOTE: Patient is cleared to be discharged per ERMD, pt is aox4, on room air, with stable vital signs. pt was given dc and prescription instructions, pt was able to verbalize understanding, pt id band removed. pt is able to ambulate with steady gait. pt took all belongings. pt was placed on splint and given sling
--- NOTE | 2019-12-13 11:49 | NUR ---
Per ERMD Volar splint has been applied to pts left upper arms. Once splint has been applied PMS has been reassessed with good cap refil.
--- NOTE | 2019-12-13 16:10 | Diagnostic Imaging Report ---
Indications: Fall, trauma, pain Technique: Two views of the left forearm Comparison: None Findings: There is an oblique fracture of the distal ulnar diaphysis. This is displaced by about one half bone width. This is comminuted. There is also an unusual chip fracture of the lateral aspect of the distal radius, with a few fragments detached from the cortex. No proximal shaft fracture demonstrated. Impression: Positive for distal ulnar and radial fractures, as described
--- NOTE | 2019-12-13 16:11 | Diagnostic Imaging Report ---
Clinical Indication:Trauma, status post fall Technique: 3 views of the left wrist Comparison: None Findings: There is an oblique fracture of the distal: diaphysis. This is displaced by about one third bone width. This is comminuted. There is also an unusual chip fracture of the lateral aspect of the distal radius, with a few fragments detached from the cortex. No carpal fracture demonstrated. Small cyst is seen within the lunate. Impression: Positive for distal ulnar and radial fractures, as described
== END 2019-12-13 11:43 | disposition home or self-care (01) ==
LOC: EMR 11:33
DX: S52.602A Unspecified fracture of lower end of left ulna, initial encounter for closed fracture (principal); S52.502A Unspecified fracture of the lower end of left radius, initial encounter for closed fracture; M85.68 Other cyst of bone, other site; Z88.0 Allergy status to penicillin; G81.91 Hemiplegia, unspecified affecting right dominant side; W19.XXXA Unspecified fall, initial encounter; Y92.9 Unspecified place or not applicable; I10 Essential (primary) hypertension; E11.9 Type 2 diabetes mellitus without complications
CPT/HCPCS: 29125; 81003; 87086; 99283